=== PATIENT | female | born 2000 | race Caucasian/White ===

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

== ENCOUNTER 2021-03-24 16:39 | Outpatient (REF) | payer MEDICAID, SELFPAY ==
[2021-03-28 07:14] LABS: Chlamydia Result Positive (Negative); GC Result Negative (Negative)
== END 2021-03-24 16:40 | disposition home or self-care (01) ==
LOC: LBN 16:39
PROVIDERS: PCP Pediatrics; Visit Provider Obstetrics & Gynecology
DX: Z11.3 Encounter for screening for infections with a predominantly sexual mode of transmission (principal)
CPT/HCPCS: 87491; 87591